=== PATIENT | female | born 1995 | race Caucasian/White ===

== ENCOUNTER → 2024-06-22 14:02 | Outpatient (REF) | payer OTHER, SELFPAY | LOC: HWRAD 14:02 | PROVIDERS: ATTENDING PHYSICIAN Obstetrics & Gynecology; FAMILY PHYSICIAN Family Medicine | DX: R19.09 Other intra-abdominal and pelvic swelling, mass and lump (principal) | CPT/HCPCS: 76882 ==

== ENCOUNTER → 2024-07-10 10:33 | Outpatient (REF) | payer OTHER, SELFPAY | LOC: RADI 10:33 | PROVIDERS: ATTENDING PHYSICIAN Obstetrics & Gynecology | DX: R59.0 Localized enlarged lymph nodes (principal) | CPT/HCPCS: 88173; 88305; 38505; 76942; 88341; 88342; 88365 ==

== ENCOUNTER 2025-02-23 14:30 | Observation (INO) | payer OTHER, SELFPAY ==
[2025-02-23 14:55] VITALS: BP 106/61; BMI 26.5
[2025-02-23 15:15] LABS: Hematocrit 35.5 % (37.0-47.0); Hemoglobin 12.8 g/dL (12.0-16.0); Mean Corp Hgb Conc. 36.1 g/dL (33.0-37.0); Mean Corpuscular Hgb 28.8 pg (27.0-31.0); Mean Corpuscular Volume 79.8 fL (81.0-99.0); Mean Platelet Volume 10.4 fL (7.4-10.4); Platelet Count 193 10^3/uL (130-400); Red Blood Cell Count 4.45 10^6/uL (4.20-5.40); Red Cell Dist. Width 12.6 % (11.5-14.5); White Blood Cell Count 11.3 10^3/uL (4.8-10.8)
[2025-02-23 15:25] LABS: INR 0.96; PT 13.1 Sec (11.4-14.6)
[2025-02-23 15:26] LABS: APTT 26.4 Sec (23.4-35.0); Fibrinogen 403 MG/DL (199-459)
== END 2025-02-23 17:40 | disposition home or self-care (01) ==
LOC: PNTC-IN 14:30
PROVIDERS: ADMITTING PHYSICIAN Student in an Organized Health Care Education/Training Program
DX: O26.893 Other specified pregnancy related conditions, third trimester (principal); Z04.3 Encounter for examination and observation following other accident; Z3A.29 29 weeks gestation of pregnancy; S39.91XA Unspecified injury of abdomen, initial encounter
CPT/HCPCS: 76815; 85027; 85384; 85460; 85610; 85730; 86850; 86900; 86901; G0378

== ENCOUNTER → 2025-02-27 10:44 | Outpatient (REF) | payer OTHER, SELFPAY | LOC: REG 10:44 | PROVIDERS: ATTENDING PHYSICIAN Emergency Medicine; FAMILY PHYSICIAN Family Medicine | DX: R19.7 Diarrhea, unspecified (principal) | CPT/HCPCS: 87324; 87328; 87329; 87449 ==

== ENCOUNTER → 2025-03-23 10:48 | Outpatient (REF) | payer OTHER, SELFPAY | LOC: RAD 10:48 | PROVIDERS: ATTENDING PHYSICIAN Obstetrics & Gynecology; FAMILY PHYSICIAN Family Medicine | DX: M79.662 Pain in left lower leg (principal) | CPT/HCPCS: 93971 ==

== ENCOUNTER 2025-05-11 19:35 | Inpatient (IN) | payer OTHER, SELFPAY ==
[2025-05-11 19:45] VITALS: BMI 28.3
[2025-05-11 20:30] VITALS: BP 124/81
[2025-05-11 20:35] LABS: Hematocrit 35.1 % (37.0-47.0); Hemoglobin 12.3 g/dL (12.0-16.0); Mean Corp Hgb Conc. 35.0 g/dL (33.0-37.0); Mean Corpuscular Volume 79.8 fL (81.0-99.0); Nucleated Red Blood Cells % 0 %; Platelet Count 179 10^3/uL (130-400); Red Cell Dist. Width 12.7 % (11.5-14.5)
[2025-05-11] MEDS: CYTOTEC 25 MICROGRAM VAG (20:41)
[2025-05-12] MEDS: CYTOTEC 50 MICROGRAM PO ×2 (00:56→05:35)
--- NOTE | 2025-05-12 02:48 | DOWNTIME ---
There was a [employer] Downtime on 05/12/2025 from 0100 to 05/12/2025 at 0235. Downtime documentation of patient's care, including medication administrations, has been reconciled in the electronic record per guidelines. Refer to the
patient's paper chart under the miscellaneous tab to see printed paper medication records and downtime forms.
[2025-05-12] MEDS: LR 1000 IV (09:45)
[2025-05-12] MEDS: PITOCIN 30 UNITS/NSS 500 ML IV (09:46)
[2025-05-12] MEDS: FENTANYL/BUPIVACAINE 100 EPIDURAL (14:48)
[2025-05-12] MEDS: SUBLIMAZE 100 MCG EPIDURAL (14:48)
[2025-05-13 05:05] LABS: Hematocrit 34.9 % (37.0-47.0); Hemoglobin 12.6 g/dL (12.0-16.0)
[2025-05-13] MEDS: PRENATAL PLUS 1 TABLET PO (08:07)
[2025-05-13] MEDS: COLACE 100 MG PO ×2 (08:07→19:58)
[2025-05-13] MEDS: MOTRIN 600 MG PO ×3 (09:26→15:18)
[2025-05-13] MEDS: CYTOTEC PO ×3 (10:37→10:41)
[2025-05-13] MEDS: TYLENOL 650 MG PO (19:58)
[2025-05-14] MEDS: MOTRIN 600 MG PO (04:25)
[2025-05-14] MEDS: PRENATAL PLUS 1 TABLET PO (07:44)
[2025-05-14] MEDS: COLACE 100 MG PO (07:44)
[2025-05-14 12:51] LABS: Syphilis/T. pallidum Ab Reflex Negative (Negative)
== END 2025-05-14 10:00 | disposition home or self-care (01) | DRG 807 ==
LOC: LDRP 19:35
PROVIDERS: Student in an Organized Health Care Education/Training Program; ADMITTING PHYSICIAN Obstetrics & Gynecology
PROC: 3E0P7VZ Introduction of Hormone into Female Reproductive, Via Natural or Artificial Opening (ICD-10-PCS; 2025-05-11)
PROC: 3E033VJ Introduction of Other Hormone into Peripheral Vein, Percutaneous Approach (ICD-10-PCS; 2025-05-12)
PROC: 0KQM0ZZ Repair Perineum Muscle, Open Approach (ICD-10-PCS; 2025-05-12)
PROC: 10E0XZZ Delivery of Products of Conception, External Approach (ICD-10-PCS; 2025-05-12)
PROC: 10907ZC Drainage of Amniotic Fluid, Therapeutic from Products of Conception, Via Natural or Artificial Opening (ICD-10-PCS; 2025-05-12)
DX: O48.0 Post-term pregnancy (principal); Z37.0 Single live birth; Z3A.40 40 weeks gestation of pregnancy; O70.1 Second degree perineal laceration during delivery
CPT/HCPCS: 85014; 85018; 85025; 86780; 86850; 86900; 86901